=== PATIENT | female | born 1965 | race Caucasian/White ===

== ENCOUNTER 2018-01-26 10:01 | Day surgery (SDC) | payer OTHER ==
[~2018-01-26] VITALS: Ht 162.6 cm; Wt 60.8 kg
[2018-01-26] MEDS ORDERED: KETOROLAC 30 MG/ML VIAL ONE (11:00)
[2018-01-26] MEDS ORDERED: LIDOCAINE 2% 100 MG/5 ML UJET TP ONE (11:00)
[2018-01-26] MEDS ORDERED: fentaNYL 0.05 MG/ML VIAL ONE (11:03)
[2018-01-26] MEDS ORDERED: MIDAZOLAM 2 MG/2 ML VIAL ONE (11:03)
== END 2018-01-26 12:18 | disposition home or self-care (01) ==
LOC: MDS 10:01 → MMU 10:01 → MDS 12:18
PROVIDERS: ATTEND Internal Medicine Gastroenterology
DX: K64.8 Other hemorrhoids (principal); E11.9 Type 2 diabetes mellitus without complications; G89.29 Other chronic pain; E66.3 Overweight; Z68.23 Body mass index [BMI] 23.0-23.9, adult; Z79.899 Other long term (current) drug therapy; Z98.890 Other specified postprocedural states; Z98.51 Tubal ligation status
CPT/HCPCS: 45378; 82948; J2250; J7030; J1885; J3010